=== PATIENT | female | born 2000 | race Caucasian/White ===

== ENCOUNTER 2021-01-29 15:20 | Emergency (ER) | payer MEDICAID ==
[~2021-01-29] VITALS: Ht 165.1 cm; Wt 43.1 kg
[2021-01-29 16:12] LABS: BILIRUBIN,URINE NEGATIVE (NEG); CLARITY,URINE CLEAR; COLOR,URINE YELLOW; NITRITE,URINE NEGATIVE (NEG); PROTEIN,URINE NEGATIVE (NEG-TRACE); UROBILINOGEN,URINE 0.2 mg/dL (0.2 mg/dL)
[2021-01-29] MEDS ORDERED: KETOROLAC TROMETHAMINE 10 MG TABLET PO PRN (16:15)
[2021-01-29 16:20] LABS: BARBITURATES NEG (NEG); BENZODIAZEPINES POS (NEG); CANNABINOIDS POS (NEG); COCAINE NEG (NEG); METHADONE NEG (NEG); OPIATES NEG (NEG); PHENCYCLIDINE NEG (NEG)
[2021-01-29 16:23] LABS: AMPHETAMINE/METHAMPHETAMINE NEG (NEG)
--- NOTE | 2021-01-29 16:28 | PHYS DOC ---
Past Medical History Additional Past Medical Histor: Nexplanon in left arm. Past Surgical History: No Surgical History Smoking Status: Current Every Day Smoker Additional Information: vap Alcohol Use: Occasionally Additional Information: 2 white claws about 1245 Drug Use: Benzodiazepine, Marijuana General Adult EDM: Chief Complaint: ANKLE PROBLEM HPI: HPI: Patient is a 20 year old female who presents via EMS with complaints of persistent left ankle pain and altered mental status. Patient is a poor historian, so patient history was pieced together by patient's input, EMS and reports from boyfriend. Patient states she has injured her left ankle multiple times. She states that the day before yesterday she tripped and fell down a flight of stairs. She visited [facility] ER yesterday and received 1 tablet of hydrocodone, a shot of some kind and a splint. She reports she had x-rays, but she was never notified of the radiologist read. She reports to me that she took one Xanax last drank alcohol last night, however she reports to nursing staff that she last took Xanax at 8 o'clock this morning and had two white claws just prior to arrival. It is unclear how much alcohol she has drank or Xanax taken. She reports to me that she called EMS from her friend's resident, which is in the same apartment complex as her own. Patient's boyfriend states that they were in the car on the way to a different emergency department, when she stated that she did not want to wait and drive that long. She got out of the car and began walking to the emergency department here. At that time, she called EMS and they picked her up from the street. Patient denies SI and HI at this time. She has no other injury, trauma or complaints. Review of Systems: Review of Systems: ROS negative except as mentioned in HPI. Heart Score: C/O Chest Pain: No Current Medications: Current Medications Medications (Trade) Dose Ordered Sig/Alphonse Start Time Stop Time Status Last Admin Dose Admin Ketorolac Tromethamine (Toradol) 20 mg 1X PRN 01/29/21 16:15 02/03/21 16:14 Allergies: Allergies: Allergies Coded Allergies Type Severity Reaction Last Updated Verified No Known Drug Allergies 01/29/21 No Physical Exam: PE: Constitutional: Thin, somewhat disheveled with an brushed hair, no acute distress, non-toxic appearance. HENT: Normocephalic, atraumatic, bilateral external ears normal, oropharynx moist, no oral exudates, nose normal. Eyes: PERRLA, EOMI, conjunctiva normal, no discharge. Neck: Normal range of motion, no step-offs, no bony tenderness, no paraspinal tenderness. Cardiovascular: Heart rate regular rhythm, no murmur. Lungs & Thorax: Bilateral breath sounds clear to auscultation. Back: No step-offs, no bony tenderness, no paraspinal tenderness delete. Extremities: Moderate ecchymosis noted on lateral aspect of left ankle, active and passive range of motion intact with pain, neurovascular intact. Extremities otherwise no tenderness, no cyanosis, no clubbing, ROM intact, no edema. Neurologic: Patient is oriented to person only, she does not know which hospital she is currently in or today's date or day of the week, clumsy body movements, normal motor function, normal sensory function, no focal deficits noted. Psychologic: Slurred speech, poor judgment, mood "hurting. Current Patient Data: Labs: Laboratory Tests Test 01/29/21 16:05 01/29/21 18:40 Urine Collection Type Unknown Urine Color Yellow Urine Clarity Clear Urine pH 7.0 (<5.0-8.0) Urine Specific [place] <=1.005 (1.000-1.030) Urine Protein Negative mg/dL (NEG-TRACE) Urine Glucose (UA) Negative mg/dL (NEG) Urine Ketones (Stick) Negative mg/dL (NEG) Urine Blood Large (NEG) Urine Nitrite Negative (NEG) Urine Bilirubin Negative (NEG) Urine Urobilinogen Dipstick 0.2 mg/dL (0.2 mg/dL) Urine Leukocyte Esterase Negative (NEG) Urine RBC 0 /HPF (0-2) Urine WBC 1-4 /HPF (0-4) Urine Squamous Epithelial Cells Few /LPF Urine Amorphous Sediment Present /HPF Urine Bacteria Few /HPF (0-FEW) Bedside Urine HCG, Qualitative Hcg negative (Negative) Urine Opiates Screen Neg (NEG) Urine Methadone Screen Neg (NEG) Urine Barbiturates Neg (NEG) Urine Phencyclidine Screen Neg (NEG) Urine Amphetamine/Methamphetamine Neg (NEG) Urine Benzodiazepines Screen Pos (NEG) Urine Cocaine Screen Neg (NEG) Urine Cannabinoids Screen Pos (NEG) Urine Ethyl Alcohol Pos (NEG) Ethyl Alcohol Level 159 mg/dL (0-10) Vital Signs: Vital Signs Date Time Temp Pulse Resp B/P (MAP) Pulse Ox O2 Delivery O2 Flow Rate FiO2 01/29/21 15:25 98.2 16 124/72 (89) 97 Room Air 98.2 Radiology/Procedures: Radiology/Procedures: PROCEDURE: ANKLE LEFT 3V AP, lateral, and oblique views of the left ankle were obtained. History: Reason: persistent pain / Spl. Instructions: / History: Comparison: none. No fracture, dislocation, or soft tissue swelling is seen. The mortise is intact and there is no widening of the distal tibiofibular space. Impression: 1. Unremarkable plain film exam of the left ankle. Electronically signed by: Jesus Barrientos MD (01/29/2021 4:33 PM) [facility] Course & Med Decision Making: Course & Med Decision Making Pertinent Labs and Imaging studies reviewed. (See chart for details) Patient is obviously intoxicated, with slurred speech and disorientation. As prior x-ray films are not easily obtained, nor having seen the report, repeat ankle x-rays were ordered. For the most part, patient is sleeping here in the department. On reevaluation at 1635, patient is standing up and attempting to go to the bathroom, she feels she is about to vomit. Patient provided with 8 mg Zofran ODT. 1902: Patient states her symptoms are improved, and that her dad is here to take her home. I discussed the need for her to consistently take NSAIDs to relieve the pain and swelling in her ankle. I provided her with orthopedic follow-up should her symptoms not improve in the next week. Patient understands and is agreeable to discharge plan. Renee Disclaimer: Renee Disclaimer: This electronic medical record was generated, in whole or in part, using a voice recognition dictation system. Departure Departure Impression: Primary Impression: Sprain of unspecified ligament of left ankle, subsequent encounter Additional Impressions: Alcohol intoxication Qualified Codes: F10.920 - Alcohol use, unspecified with intoxication, uncomplicated Intoxication with marijuana Qualified Codes: F12.920 - Cannabis use, unspecified with intoxication, uncomplicated Intoxication by drug Qualified Codes: F19.920 - Other psychoactive substance use, unspecified wi th intoxication, uncomplicated Disposition: 01 HOME / SELF CARE / HOMELESS Condition: STABLE Referrals: KETAN MCGRAW DO Patient Instructions: Ankle Sprain, [id number], Substance Abuse-Brief Additional Instructions: No fractures are seen on your x-rays today. You may follow-up with orthopedic doctors if your pain persists. At this time, there are no additional resources for evaluation of your ankle injury in the emergency department. Please return to the emergency department if you develop new symptoms. As discussed, it is not advisable to self medicate and combine benzodiazepines with alcohol. You are provided with resources today for substance use rehabilitation programs. Scripts Ondansetron (ONDANSETRON ODT) 4 Mg Tab.rapdis 1 TAB PO PRN Q6-8HRS, #16 TAB Prov: ALEXA PIZARRO 01/29/21 Ketorolac Tromethamine (KETOROLAC TROMETHAMINE) 10 Mg Tablet 1 TAB PO Q8HRS for 4 Days, #12 TAB Prov: ALEXA PIZARRO 01/29/21 ALEXA PIZARRO Jan 29, 2021 16:28
[2021-01-29 16:33] LABS: BACTERIA,URINE FEW /HPF (0-FEW)
[2021-01-29 16:34] LABS: AMORPHOUS SEDIMENT,UR PRESENT /HPF; RBC,URINE 0 /HPF (0-2)
--- NOTE | 2021-01-29 16:35 | RAD ---
AP, lateral, and oblique views of the left ankle were obtained. History: Reason: persistent pain / Spl. Instructions: / History: Comparison: none. No fracture, dislocation, or soft tissue swelling is seen. The mortise is intact and there is no wid ening of the distal tibiofibular space. Impression: 1. Unremarkable plain film exam of the left ankle. Electronically signed by: Jesus Barrientos MD (01/29/2021 4:33 PM) [facility]
[2021-01-29] MEDS ORDERED: ONDANSETRON ODT 4 MG TAB.RAPDIS. PO ONE (18:45)
[2021-01-29] MEDS ORDERED: ONDA4TAB12 PO (19:06)
[2021-01-29] MEDS ORDERED: KETO10TA PO (19:06)
[2021-01-29 19:15] VITALS: BP 129/79
== END 2021-01-29 19:31 | disposition home or self-care (01) ==
LOC: ER 15:20
DX: S93.402D Sprain of unspecified ligament of left ankle, subsequent encounter (principal); M25.572 Pain in left ankle and joints of left foot; R41.82 Altered mental status, unspecified; F17.200 Nicotine dependence, unspecified, uncomplicated; F10.229 Alcohol dependence with intoxication, unspecified; Y90.6 Blood alcohol level of 120-199 mg/100 ml; F12.920 Cannabis use, unspecified with intoxication, uncomplicated; F19.920 Other psychoactive substance use, unspecified with intoxication, uncomplicated; W01.0XXD Fall on same level from slipping, tripping and stumbling without subsequent striking against object, subsequent encounter
CPT/HCPCS: 36415; 73610; 80307; 81001; 81025; 99284; G0480